=== PATIENT | female | born 1990 | race Caucasian/White ===

== ENCOUNTER 2017-10-02 22:37 | Inpatient (IN) | payer OTHER ==
[~2017-10-02] VITALS: Ht 162.6 cm; Wt 131.5 kg
[2017-10-03 00:30] LABS: ABSOLUTE BASOPHIL COUNT 0 /CUMM (0.0-0.2); ABSOLUTE EOSINOPHIL COUNT 0.2 /CUMM (0.0-0.7); ABSOLUTE GRANULOCYTE CT 9.1 /CUMM (1.4-6.5); ABSOLUTE LYMPH COUNT 2.9 /CUMM (1.2-3.4); ABSOLUTE MONOCYTE COUNT 0.7 /CUMM (0.10-0.60); BASOPHIL % 0.4 % (0.0-2.0); EOSINOPHIL % 1.8 % (0-5); GRANULOCYTE % 70.1 % (42.2-75.2); HEMATOCRIT 34.5 % (37-47); MEAN CORPUSCULAR HGB 27.5 PG (27.0-31.0); MEAN CORPUSCULAR HGB CONC 32.7 G/DL (33.0-37.0); MEAN CORPUSCULAR VOLUME 84.1 FL (81.0-99.0); MEAN PLATELET VOLUME 11.4 FL (7.4-10.4); PLATELET COUNT 166 /CUMM (130-400)
--- NOTE | 2017-10-03 02:17 | History & Physical ---
General Information and HPI MD Statement: I have seen and personally examined ANABEL BLANKENSHIP and documented this H& P. Source of Information: patient, old records Exam Limitations: no limitations History of Present Illness: The patient is a 27 year old female at 40 weeks and 0 days gestation who presented with a chief complaint of LOF 8p, clr. Ctx started soon after, now q 3 -4. No vb. +FM. GBS neg. Pt received Stadol and reports no relief. 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 Last Menstrual Period: 12/27/16 Estimated Delivery Date: 10/03/17 Past cad design engineer History: vtop x 1, sab x 1 Surgical History Pertinent Surgical History: none Past Family/Social History Psychosocial History Smoking Status: Never Smoked Exam & Diagnostic Data Last 24 Hrs of Vital Signs/I&O 138/84, 88, afeb Intake & Output 10/03 0800 10/03 0000 10/02 1600 Intake Total Output Total Balance Patient 290 lb Weight Obstetric Exam Wgt Gained During : 20 lbs Pelvimetry: adequate Dilation (cm): 4 Effacement (%): 90 Station: -2 Membranes: SROM Fluid: clear Fundal Height (cm): 40 Multiple Gestation? No Contractions: q3-5 Infant #1 - FHR Baseline: 120 Category: 1 Estimated Weight: 3700gr Presentation: vtx Patient for Induction? No Physical Exam: nad abd soft nt gravid ext nt +2 b/l le ed Labs Blood Type & Rh: O pos Antibody Screen: neg Hct/Hgb & Platelets #1: 13.3/ 43.4, 266 Hct/Hgb & Platelets #2: 12.0/ 40.8, 241 Rubella: imm VDRL #1: neg VDRL #2: neg HbsAg: neg HIV #1: neg HIV #2 neg 1 Hr P Group B Strep: neg Initial Ultrasound: 02/25/17 siup 8+4 cwd Anatomy Ultrasound: 05/31/17 22+1 nl tammy, plac ant Genetic Testing: CF neg, hgb AA declined 1st trim screening Last 24 Hrs of Labs/Edwardo: Laboratory Tests 10/03/17 0005: CBC w Diff NO MAN DIFF REQ, RBC 4.10 L, MCV 84.1, MCH 27.5, RDW 16.0 H, MPV 11.4 H, Gran % 70.1, Lymphocytes % 22.1, Monocytes % 5.6, Eosinophils % 1.8, Basophils % 0.4, Absolute Granulocytes 9.1 H, Absolute Lymphocytes 2.9, Absolute Monocytes 0.7 H, Absolute Eosinophils 0.2, Absolute Basophils 0, PUBS MCHC 32.7 L 10/02/17 2317: Membrane Rupture POSITIVE, Urinalysis LIGHT H, Urine Color YEL, Urine Clarity CLEAR, Urine pH 6.0, Ur Specific [place] 1.010, Urine Protein NEG, Urine Ketones NEG, Urine Nitrite NEG, Urine Bilirubin NEG, Urine Urobilinogen 0.2, Ur Leukocyte Esterase NEG, Ur Microscopic SEDIMENT EXAMINED, Urine RBC 10-15 H, Urine WBC 1-3 H, Ur Epithelial Cells FEW, Urine Mucus FEW, Urine Hemoglobin SMALL H, Urine Glucose NEG Assessment/Plan Assessment/Plan: 27yo P0 40wks early labor, gbs neg, srom 8p, and maternal status reassuring -admit -anesthesia for epidural -monitoring -ansvd As Ranked By This Provider Problem List: 1. Core Measures Venous Thromboembolism VTE Risk Factors / No Mechanical VTE Prophylaxis d/t Early Ambulation No VTE Pharm Prophylaxis d/t LowRisk-No Interven Req'd
[2017-10-03 04:06] VITALS: BP 138/84
--- NOTE | 2017-10-03 07:41 | PN- OBGYN ---
Surgical Brief Attending Note Brief Attending Note: pt comfortable w/ epidural afeb, v/ss fht 120s mod variability +acc no dec toco q 3-4 sve 9/100/-1 p0 40wks active labor, gbs neg, and maternal status reassuring -cont current mgmt
--- NOTE | 2017-10-03 11:44 | Labor & Delivery Summary ---
Delivery Summary Vaginal Delivery: Vaginal: vertex Episiotomy/Lacerations: Type: 1 DEGREE Repair: 3-0 POLYSORB Anesthesia: BUPIVICAINE Placenta: Placenta: spontanteous, normal, 3 vessel Anesthesia: block Baby's Weight: 7 LBS 15 OZ Apgars - 1 Min: 8 Apgars - 5 Min: 9 Additional Comments: GOOD PUSHING WITH TREMENDUS NURSING SUPPORT SMALL 2CM LAC.
[2017-10-04 07:54] LABS: ABSOLUTE BASOPHIL COUNT 0 /CUMM (0.0-0.2); ABSOLUTE EOSINOPHIL COUNT 0.2 /CUMM (0.0-0.7); ABSOLUTE GRANULOCYTE CT 8.6 /CUMM (1.4-6.5); MEAN CORPUSCULAR HGB CONC 33.1 G/DL (33.0-37.0)
[2017-10-04 08:27] LABS: ABSOLUTE LYMPH COUNT 3.3 /CUMM (1.2-3.4); ABSOLUTE MONOCYTE COUNT 0.8 /CUMM (0.10-0.60); BASOPHIL % 0.4 % (0.0-2.0); EOSINOPHIL % 1.4 % (0-5); GRANULOCYTE % 66.7 % (42.2-75.2); MEAN CORPUSCULAR VOLUME 84.5 FL (81.0-99.0); MEAN PLATELET VOLUME 11.9 FL (7.4-10.4); PLATELET COUNT 135 /CUMM (130-400); RBC DISTRIBUTION WIDTH 16.7 % (11.5-14.5); RED BLOOD CELL CT 3.34 /CUMM (4.20-5.40); WHITE BLOOD CELL COUNT 12.9 /CUMM (4.8-10.8)
[2017-10-04 08:30] LABS: HEMATOCRIT 28.2 % (37-47)
--- NOTE | 2017-10-04 09:41 | PN- Post Delivery/GYN ---
Subjective Subjective: feels well, no complaints, tolerate diet, void without difficulties, ambulating well Review of Systems Constitutional: Reports: no symptoms. EENTM: Reports: no symptoms. Cardiovascular: Reports: no symptoms. Respiratory: Reports: no symptoms. Gastrointestinal: Reports: no symptoms. Genitourinary: Reports: see HPI. Musculoskeletal: Reports: no symptoms. All Other Systems: Reviewed and Negative Objective Last 24 Hrs of Vital Signs/I&O Vital Signs Date Time Temp Pulse Resp B/P B/P Pulse O2 O2 Flow FiO2 Mean Ox Delivery Rate 10/03 1444 37.8 Physical Exam: VSS General: NAD CV RRR lungs CTA B/L Abdomen: soft, nontender, uterus firm, fundus below umbilicus. mild lochia Ext: DCT (-) Current Medications: Current Medications Sig/Christa Start time Last Medication Dose Route Stop Time Status Admin Acetaminophen 650 MG Q4P PRN 10/03 1145 AC 10/03 PO 1444 Bupivacaine HCl 10 ML ONCE ONE 10/03 1145 DC 10/03 SC 10/03 1146 1120 Docusate Sodium 100 MG BID PRN 10/03 1145 AC PO Enoxaparin Sodium 40 MG DAILY 10/04 1000 AC SC Hydroxyzine HCl 50 MG AT BEDTIME NEED.. 10/03 1145 AC PO Ibuprofen 800 MG Q6P PRN 10/03 1145 AC 10/04 PO 0548 Lactated Ringer's 1,000 ML Q8H 10/03 0015 DC 10/03 IV 0918 Magnesium Hydroxide 30 ML DAILY PRN 10/03 1145 AC PO Oxytocin 20 UNITS Q5H 10/03 1145 DC 10/03 Lactated Ringer's 1,000 ML IV 10/03 1644 1154 Oxytocin 30 UNITS PER PROTOCL 10/03 0930 DC 10/03 Lactated Ringer's 500 ML IV 10/04 0929 0918 Last 24 Hrs of Labs/Edwardo: Laboratory Tests 10/04/17 0635: CBC w Diff NO MAN DIFF REQ, RBC 3.34 L, MCV 84.5, MCH 28.0, RDW 16.7 H, MPV 11.9 H, Gran % 66.7, Lymphocytes % 25.6, Monocytes % 5.9, Eosinophils % 1.4, Basophils % 0.4, Absolute Granulocytes 8.6 H, Absolute Lymphocytes 3.3, Absolute Monocytes 0.8 H, Absolute Eosinophils 0.2, Absolute Basophils 0, PUBS MCHC 33.1 Assessment/Plan Assessment/Plan 27yo, s/p , PPD#1 1. encourage ambulation 2. pain management as needed 3. hemoglobin 9.4 noted, pt asymptomatic, will start iron supplement. 4.RT PP care Attending MD Review Statement Attending Statement Attending MD Statement: examined this patient, discussed with family, discussed with nursing
--- NOTE | 2017-10-05 10:45 | PN- OBGYN ---
Surgical Brief Attending Note Brief Attending Note: pt feeling well. amb / void / yonas po. pain well controlled. +BF afeb, v/ss nad abd soft nt ff evgeny min lochia ext ny +2 b/l le edema A/P ppd 2 s/p , doing well -count routine pp care -d/c home w/ f/u in office in 6 wks, on tuesday on L&D -d/c instructions reviewed
[2017-10-05] MEDS ORDERED: FERROUS SULFAT325 M2 PO (10:48)
[2017-10-05] MEDS ORDERED: IBUPROFEN800 M1 PO (10:48)
== END 2017-10-05 12:00 | DRG 560 ==
LOC: CBCO 22:37 → GNO 23:45
PROVIDERS: Obstetrics & Gynecology
PROC: 0HQ9XZZ Repair Perineum Skin, External Approach (ICD-10-PCS; principal; 2017-10-03)
PROC: 10E0XZZ Delivery of Products of Conception, External Approach (ICD-10-PCS; 2017-10-03)
DX: O70.0 First degree perineal laceration during delivery (principal); Z3A.40 40 weeks gestation of pregnancy; Z37.0 Single live birth; O86.4 Pyrexia of unknown origin following delivery
CPT/HCPCS: GNOP; GNOS; 36415; 81001; 84112; 87086; J1650; J7120